=== PATIENT | female | born 1955 | race Caucasian/White ===

== ENCOUNTER → 2016-09-14 | Outpatient (CLI) | payer OTHER | END | disposition home or self-care (01) | LOC: C.LAB1850 15:17 | PROVIDERS: ATTEND Physician Assistant | DX: R07.89 Other chest pain (principal) ==

== ENCOUNTER 2024-06-14 12:45 | Observation (INO) ==
--- OUTSIDE RECORDS SUMMARY | 2024-06-14 12:58 | External Medical Summary | Summary of Care ---
Author Name Unknown Organization [facility] Address [address] [place] [address] Phone [phone] Care Team Providers Care Physics Technical Officer Name Role Phone Brent Lozano PA-C Primary Care Provide r Reason for Visit * Reason Onset Date Comments Medication Refill 02/04/2024 Encounter Details Date Type Department Care Team (Late st Contact Info) Description 02/04/2024 Refill [facility] [phone] [place] [phone] Brent Lozano PA-C [address] [facility] [place] [phone] Slow transit constipation* Allergies No known active allergiesdocumented as of this encounter (statuses as of 02/05/2024) Medications Medication Sig Dispensed Refills Start Date End Date Status PRESERVISION AREDS PO CAPS Take 1 Capsule by mouth in the morning and 1 Capsule in the evening. Active MEGARED OMEGA-3 KRILL OIL 500 MG CAPS Take 1 Capsule by mouth in the morning. Active polyethylene glycol 3350 (MIRALAX) 255 gram powderIndications: Constipation, unspecified constipation type Take 17 g by mouth as needed for Constipation. Dissolve one heaping tablespoon in 8 ounces of water or juice. 1 Bottle 2 08/20/2019 Active Centrum Silver 50+Women Oral Tablet Take 1 Tab by mouth daily. Active Vitamin D-3 25 MCG (1000 UT) Oral Capsule Take 1 Capsule by mouth in the morning. Active Nystatin 659779 UNIT/GM External Powder (Nystop) Apply topically to affected area 3 times a day . Apply under breasts 60 g 09/13/2021 Active CoQ10 100 MG Oral Capsule Take by mouth. Active Famotidine 20 MG Oral Tablet (Pepcid)Indication s:Slow transit constipation Take 1 Tablet by mouth 2 times a day as needed for Heartburn. 30 Tablet 5 09/11/2022 Active Hydrocortisone Acetate 25 MG Rectal Suppository (Anusol-HC)Indicat ions:Hemorrhoids, external without complications Administer into the rectum 2 times a day in the morning and at bedtime as needed for Hemorrhoids. Up to 2 weeks. 24 Suppository 1 09/11/2022 Active Lisinopril 40 MG Oral Tablet TAKE ONE TABLET BY MOUTH EVERY DAY 90 Tablet 3 11/20/2022 Active hydroCHLOROthiazid e 25 MG Oral Tablet (Hydrodiuril) TAKE ONE TABLET BY MOUTH IN THE MORNING 100 Tablet 3 06/21/2022 Active Omeprazole 20 MG Oral Capsule Delayed Release (PriLOSEC)Indicati ons:Slow transit constipation Take 1 Capsule by mouth daily as needed for Heartburn. 30 Capsule 5 02/05/2024 Active Omeprazole 20 MG Oral Capsule Delayed Release (PriLOSEC)Indicati ons:Slow transit constipation Take 1 Capsule by mouth daily as needed for Heartburn. 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 r degeneration, right eye, with inactive scar 08/15/2018 Mixed hyperlipidemia 08/15/2018 AMD (age related macular degeneration) 8 HTN, goal below 140/90 10/04/2016 documented as of this encounter (statuses as of 02/05/2024) Resolved Problems Problem Noted Date Diagnosed Date Resolved Date Chest pain 03/18/2019 01/12/2020 Palpitations 02/07/2018 02/17/2019 Hyperlipidemia 10/04/2016 10/04/2016 Dyslipidemia 09/25/2011 08/15/2018 documented as of this encounter (statuses as of 02/05/2024) Immunizations Name Administration Dates Next Due TDAP (age 10 and older)(Boostrix) 03/27/2015,06/2014 Zoster Vaccine Recombinant (Shingrix) 08/15/2018 ,02/07/2018 documented as of this encounter Social History Tobacco Use Types Packs/Day Years Used Date Smoking Tobacco: Never Smokeless Tobacco: Never Alcohol Use Standard Drinks/Week Comments No 0 (1 standard drink = 0.6 oz pur e alcohol) PHQ-2 Answer Date Recorded PHQ Adult Total Score 0 09/11/2022 Hunger Vital Sign Answer Date Recorded Within the past 12 months, y ou worried that your food would run out before you got the money to buy more. Never true 09/12/19 23 Within the past 12 months, t he food you bought just didn't last and you didn't have money to get more. Never true 09/11/2022 Utilities Answer Date Recorded Do you have trouble paying y our heating, water, or electric bill? (Adult - for ages 18 years and over) Not on file 11/27/2023 Is your family able to pay t he heat, water, or electric bill? (Household - for ages 0-17 years) Not on file 11/27/2023 Does your family have access to good internet? (Household - for ages 0-17 years) Not on file 11/27/2023 Social Connections Answer Date Recorded How often do you feel lonely or isolated from those around you? (Adult - for ages 18 years and over) Not on file 11/27/2023 Sex and Gender Information Value Date Recorded Sex Assigned at Female 09/11/2022 8:02 AM EDT Gender Identity Female 09/11/2022 8:02 AM EDT Sexual Orientation Straight 09/11/2022 8: 02 AM EDT Job Start Date Occupation Industry Not on file Not on file Not on file documented as of this encounter Miscellaneous Notes * Telephone Encounter - Brent Lozano PA-C - 02/05/2024 2:36 PM EDT Signed Prescriptions: Disp Refills Omeprazole 20 MG Oral Capsule Delayed Rele*30 Cap*5 Sig: Take 1 Capsule by mouth daily as needed for Heartburn. Authorizing Provider: BRENT LOZANO * Telephone Encounter - Ilana Gamble LPN - 02/04/2024 1:47 PM EDT No prescriptions requested or ordered in this encounter Last Visit: 05/07/2023 (in office), Visit date not found (telemedicine) Next Visit: Visit date not found Last date the medication was ordered: 09/11/22 Patient Active Problem List Diagnosis HTN, goal below 140/90 AMD (age related macular degeneration) Exudative age-related macular degeneration, right eye, with inactive scar (HCC) Mixed hyperlipidemia Moderate episode of recurrent major depressive disorder (HCC) SVT (supraventricular tachycardia) (HCC) Slow transit constipation Labs: Lab Results Component Value Date/Time CREATININE - [facility] 0.8 09/13/2022 07:51 AM CREATININE - [facility] 0.8 08/20/2019 09:25 AM CREATININE-[facility] 0.73 03/04/2018 12:00 AM Lab Results Component Value Date/Time POTASSIUM - [facility] 4.3 09/13/2022 07:51 AM POTASSIUM - [facility] 4.8 08/20/2019 09:25 AM POTASSIUM-[facility] LAB 3.6 03/04/2018 12:00 AM Lab Results Component Value Date/Time TSH - [facility] 1.49 09/13/2022 07:51 AM TSH - [facility] 1.53 08/20/2019 09:25 AM Lab Results Component Value Date/Time LDL CHOLESTEROL (CALCULATED) - [facility] 198 (H) 09/13/2022 07:51 AM LDL CHOLESTEROL (CALCULATED) - [facility] 108 12/22/2021 07:57 AM LDL CHOLESTEROL (CALCULATED) - [facility] 98 08/20/2019 09:25 AM LDL CHOLESTEROL (CALCULATED) - [facility] 102 02/07/2018 08:13 AM LDL CHOLESTEROL (DIRECT MEASURE) - [facility] NOT APPLICABLE 08/20/2019 09:25 AM LDL CHOLESTEROL (DIRECT MEASURE) - [facility] 98 08/29/2018 07:59 AM LDL CHOLESTEROL (DIRECT MEASURE) - [facility] 114 02/07/2018 08:13 AM LDL CHOLESTEROL (DIRECT MEASURE) - [facility] NOT APPLICABLE 02/07/2018 08:13 AM Lab Results Component Value Date/Time ALT - [facility] 12 09/13/2022 07:51 AM ALT - [facility] 17 08/20/2019 09:25 AM Hemoglobin AIC Results: No results found for: "HEMOGLOBIN A1C" documented in this encounter Plan of Treatment Health Maintenance Due Date Last Done Comments Albumin/Creatinine Ratio 1972 Cologuard 08/15/1999 Sigmoidoscopy 08/15/1999 Fecal Occult Blood Test 10/08/2013 10/08/2012, 09/24 Pneumococcal Vaccine: 65+ Years (1 of 1 - PCV) 08/15/2019 Adult Wellness Visit 2020 COVID-19 Vaccine (1 - 2022-24 season) 2023 Depression Monitoring 09/12/2023 09/11/2022 GFR 09/14/2023 09/13/2022, 12/09, 05/12/2021, Additional history exists Mammogram 09/19/2023 09/18/2022, 09/09, 04/28/2021, Additional history exists Influenza Vaccine (FLU shot) (#1) 2024 DTap/Tdap Vaccines (3 - Td or Tdap) 03/27/2025 03/27/2015, 06/11/2014 DXA Scan 04/29/2025 04/29/2020 Diabetes Screening 09/13/2025 09/13/2022, 0 12/22/2021, 05/12/2021, Additional history exists Colonoscopy 03/27/2027 03/27/2017, 03/27/2017 Colorectal Cancer Screening 03/27/2027 Lipid Panel 09/14/2027 09/13/2022, 12/09, 09/30/2020, Additional history exists Zoster Vaccines Completed 08/15/2018, 02/07/2018 HPV (Gardasil) Vaccine Aged Out No lo nger eligible based on patient's age to complete this topic Hepatitis B Vaccine Aged Out No longe r eligible based on patient's age to complete this topic MENINGOCOCCAL (MENACTRA/MENVEO) Aged Out No longer eligible based on patient's age to complete this topic documented as of this encounter Medical Devices Not on filedocumented as of this encounter Visit Diagnoses Diagnosis Slow transit constipation- Primary documented in this encounter Care Teams Physics Technical Officer Relationship Specialty Start Date End Date Brent Lozano PA-C [address] [facility] [place] [phone] PCP - General Physician Yoke Setter 05/04/23 documented as of this encounter
[2024-06-14 13:08] LABS: Basophils # (auto) 0.05 K/uL (0.00-0.20); Basophils % (auto) 0.7 %; Eosinophils # (auto) 0.08 K/uL (0.00-0.50); Eosinophils % (auto) 1.2 %; Hematocrit (blood only) 40.2 % (37.0-47.0); Hemoglobin 13.3 g/dl (12.0-16.0); Immature Granulocytes # (auto) 0.01 K/uL (0.01-0.20); Immature Granulocytes % (auto) 0.1 %; Lymphocytes # (auto) 1.87 K/uL (1.20-3.40); Lymphocytes % (auto) 27.2 %; Mean Corpuscular Hemoglobin 30.8 pg (25.0-34.0); Mean Corpuscular Hgb Conc 33.1 g/dL (32.0-36.0); Mean Corpuscular Volume 93.1 fL (80.0-100.0); Mean Platelet Volume 9.2 fL (9.4-12.4); Monocytes # (auto) 0.64 K/uL (0.11-0.59); Monocytes % (auto) 9.3 %; Neutrophils # (auto) 4.23 K/uL (1.40-6.50); Neutrophils % (auto) 61.5 %; Platelet Count 273 K/uL (130-400); RDW Coefficient of Variation 13.1 % (11.5-14.5); RDW Standard Deviation 45.5 fL (36.4-46.3); Red Blood Count 4.32 M/uL (4.20-5.40); White Blood Count 6.88 K/ul (4.8-10.8)
--- NOTE | 2024-06-14 13:08 | Emergency Department Note ---
Impression & Plan Hypertensive urgency ADMIT ED Provider Note HPI: History obtained from Patient. The patient is a 68-year-old female with history of hypertension, presents emergency department with a chief complaint of intermittent chest pressure and dizziness for the past 2 days. Patient states she has had more of a constant sensation of dizziness/lightheadedness with intermittent chest pressure. Patient states that the chest discomfort/pressure does not seem to change much with exertion and the discomfort seems to come and go at random times. On arrival here to the ED the patient was noted to be hypertensive at 196/133, she is otherwise hemodynamically stable and saturating well on room air on my initial assessment. Patient was initially seen in the critical pathways waiting room secondary to lack of bed availability in the ER. ROS: - Per HPI Differential Diagnosis: Acute coronary syndrome, pulmonary embolism, aortic dissection, viral upper respiratory infection, hypertensive urgency, hypertensive emergency, intracranial hemorrhage, amongst other potential pathologies. *Outpatient medications and allergy history reviewed. PE: General: Alert HEENT: Normocephalic, trachea midline Eyes: Extraocular eye movement is intact, no scleral erythema Pulmonary: Clear to auscultation bilaterally, no wheezing Cardio: Regular rate and rhythm GI: Abdomen is soft to palpation : No suprapubic tenderness MSK: No evidence of trauma or malformation of the extremities, no edema Skin: No evidence of rash Neuro: Alert, no focal deficits Psychiatric: Cooperative INDEPENDENT INTERPRETATIONS: air sampling and monitoring: (As interpreted by myself): - An order was placed for continuous cardiac monitoring - Patient was noted to be in Sinus rhythm with a rate of 58 EKG: (As interpreted by myself): Rate: 52 Rhythm: Sinus bradycardia Intervals: Within normal limits ST changes: No ST elevation Time: 1253 Chest x-ray: (As interpreted by myself): No acute disease Interventions provided in ED: -IV labetalol, IV morphine, IV Zofran, IV hydralazine Medical Decision Making: IV was established and lab work obtained, patient was placed on gambling monitor when placed in ED room.Lab work shows no leukocytosis, hemoglobin is normal, platelet count is normal, D-dimer was obtained that is elevated at 660, CMP does not show any evidence of any critical findings. Initial high-sensitivity troponin level is negative. EKG per my interpretation shows sinus bradycardia without any acute ischemic changes. Given elevation in D-dimer, CT angiography of the chest was obtained that does not show any evidence of pulmonary embolism, here is no mention of aortic pathology per radiology. CT imaging of the head was also obtained as the patient later complained of a headache, this did not show any evidence of any acute intracranial process. On my reassessment, patient states she feels "weak" but she denies any focal complaint of pain. She was given IV morphine and IV Zofran when she complained of headache here in the ED and this did resolve her pain. CT imaging does not show any evidence of any acute intracranial hemorrhage. Blood pressure did downtrend with IV labetalol and IV hydralazine. Delta troponin was obtained given the patient's complaint of intermittent chest pressure, this was also negative. On my reevaluation the patient is with her family member at the bedside. Patient tells me she continues to feel unwell but has some difficulty describing what she is currently feeling. She states she does have some nausea and just generally feels very "weak". During our conversation the patient had an episode of emesis. She states that she does not feel well for discharge at this time. Given his, I did discuss the patient's presentation with the [facility] hospitalist service, Dr. Vang, and the patient was placed for admission in stable condition. Consultants/Discussions held with other healthcare providers: -Hospitalist, Dr. Vang Disposition discussion held by myself with: -Patient and patient's family member at the bedside Diagnosis: 1. Hypertensive urgency, acute 2. Vomiting, acute 3. Chest pain, acute, nonspecific 4. Headache, acute, non-intractable Disposition: ADMIT Phil Hawkins DO Emergency Medicine Past Med/Surg History Problem List (Updated 06/14/24 @ 16:42 by Phil Hawkins DO) Hypertensive urgency (Acute) GERD (gastroesophageal reflux disease) Hypertension Chest pain Medical History (Updated 06/14/24 @ 16:42 by Phil Hawkins DO) No cardiac disease Family History Other No pertinent family history in first degree relatives Social History Smoking Status: Never smoker Preferred Language: Bengali Feels Safe at Home: Yes Allergies Allergies Allergy/AdvReac Type Severity Reaction Status Date / Time No Known Allergies Allergy Unverified 06/14/24 15:41 Home Meds Home Medications Medication Instructions Recorded Confirmed cholecalciferol (vitamin D3) 125 See Rx Instructions .Route .COMPLEX 06/14/24 06/14/24 mcg (5,000 unit) tablet (Vitamin D3) lisinopril 10 mg tablet 10 mg PO DAILY 06/14/24 06/14/24 omega-3 fatty acids 500 mg PO BID 06/14/24 06/14/24 omeprazole 20 mg capsule,delayed See Rx Instructions .Route 06/14/24 06/14/24 release .COMPLEX PRN Heartburn [id number] 1 tab PO DAILY 06/14/24 06/14/24 18 mg-10 mg-45 mg-5 mg-250 mg tablet (B Complex w-Vit C) vitamins A,C,N-qgje-ifyqmg 2,148 2 tab PO BID 06/14/24 06/14/24 mcg-113 mg-45 mg-17.4 mg tablet (PreserVision AREDS) Results & Data (ED) Vital Signs Vital Signs - 24 hr 06/14/24 12:47 06/14/24 13:31 06/14/24 13:32 Temperature 36.5 C Temperature Source Temporal Artery Scan Pulse Rate 55 L 54 L 58 L Pulse Rate [Apical] Pulse Rate from SpO2 Sensor Respiratory Rate 18 Respiratory Effort / Characteristics Non-Labored Spontaneous Respiratory Depth Normal Blood Pressure 196/133 H 185/105 H Blood Pressure [Left Arm] Blood Pressure Mean 154 Blood Pressure Mean [Left Arm] Blood Pressure Position Sitting Pulse Oximetry 96 Oxygen Delivery Method Room Air Sepsis Recent Fever Within 48 Hours No Sepsis New/Unexplained Change in Mental Status No Sepsis Action Taken by Nursing No Action Required 06/14/24 13:33 06/14/24 13:33 06/14/24 13:33 Temperature Temperature Source Pulse Rate 53 L Pulse Rate [Apical] 57 L Pulse Rate from SpO2 Sensor Respiratory Rate 18 18 Respiratory Effort / Characteristics Respiratory Depth Blood Pressure Blood Pressure [Left Arm] 154/100 H Blood Pressure Mean Blood Pressure Mean [Left Arm] 118 Blood Pressure Position Pulse Oximetry 96 96 96 Oxygen Delivery Method Room Air Room Air Sepsis Recent Fever Within 48 Hours Sepsis New/Unexplained Change in Mental Status Sepsis Action Taken by Nursing 06/14/24 13:34 06/14/24 13:34 06/14/24 13:34 Temperature Temperature Source Pulse Rate Pulse Rate [Apical] Pulse Rate from SpO2 Sensor Respiratory Rate Respiratory Effort / Characteristics Respiratory Depth Blood Pressure 154/100 H 154/100 H 154/100 H Blood Pressure [Left Arm] Blood Pressure Mean 125 125 125 Blood Pressure Mean [Left Arm] Blood Pressure Position Pulse Oximetry Oxygen Delivery Method Sepsis Recent Fever Within 48 Hours Sepsis New/Unexplained Change in Mental Status Sepsis Action Taken by Nursing 06/14/24 13:54 06/14/24 14:00 06/14/24 14:00 Temperature Temperature Source Pulse Rate 53 L 53 L Pulse Rate [Apical] Pulse Rate from SpO2 Sensor 53 L Respiratory Rate 19 Respiratory Effort / Characteristics Respiratory Depth Blood Pressure 187/93 H 159/94 H Blood Pressure [Left Arm] Blood Pressure Mean 123 Blood Pressure Mean [Left Arm] Blood Pressure Position Pulse Oximetry 96 Oxygen Delivery Method Sepsis Recent Fever Within 48 Hours Sepsis New/Unexplained Change in Mental Status Sepsis Action Taken by Nursing 06/14/24 14:00 06/14/24 14:15 06/14/24 14:16 Temperature Temperature Source Pulse Rate 57 L Pulse Rate [Apical] Pulse Rate from SpO2 Sensor 55 L Respiratory Rate 25 H Respiratory Effort / Characteristics Respiratory Depth Blood Pressure 159/94 H 190/101 H Blood Pressure [Left Arm] Blood Pressure Mean 123 135 Blood Pressure Mean [Left Arm] Blood Pressure Position Pulse Oximetry 91 Oxygen Delivery Method Sepsis Recent Fever Within 48 Hours Sepsis New/Unexplained Change in Mental Status Sepsis Action Taken by Nursing 06/14/24 14:16 06/14/24 14:16 06/14/24 14:24 Temperature Temperature Source Pulse Rate 52 L Pulse Rate [Apical] Pulse Rate from SpO2 Sensor 54 L Respiratory Rate 24 Respiratory Effort / Characteristics Respiratory Depth Blood Pressure 190/101 H 190/101 H Blood Pressure [Left Arm] Blood Pressure Mean 135 135 Blood Pressure Mean [Left Arm] Blood Pressure Position Pulse Oximetry 93 Oxygen Delivery Method Sepsis Recent Fever Within 48 Hours Sepsis New/Unexplained Change in Mental Status Sepsis Action Taken by Nursing 06/14/24 14:27 06/14/24 14:30 06/14/24 14:32 Temperature Temperature Source Pulse Rate 60 Pulse Rate [Apical] Pulse Rate from SpO2 Sensor 54 L Respiratory Rate 21 Respiratory Effort / Characteristics Respiratory Depth Blood Pressure 202/115 H Blood Pressure [Left Arm] 202/115 H Blood Pressure Mean 140 Blood Pressure Mean [Left Arm] 144 Blood Pressure Position Pulse Oximetry 92 Oxygen Delivery Method Sepsis Recent Fever Within 48 Hours Sepsis New/Unexplained Change in Mental Status Sepsis Action Taken by Nursing 06/14/24 14:33 06/14/24 14:54 06/14/24 15:01 Temperature Temperature Source Pulse Rate 63 62 Pulse Rate [Apical] Pulse Rate from SpO2 Sensor 57 L 57 L Respiratory Rate 25 H 18 Respiratory Effort / Characteristics Respiratory Depth Blood Pressure 193/104 H Blood Pressure [Left Arm] Blood Pressure Mean 125 Blood Pressure Mean [Left Arm] Blood Pressure Position Pulse Oximetry 93 95 Oxygen Delivery Method Sepsis Recent Fever Within 48 Hours Sepsis New/Unexplained Change in Mental Status Sepsis Action Taken by Nursing 06/14/24 15:27 06/14/24 15:30 06/14/24 15:30 Temperature Temperature Source Pulse Rate 56 L Pulse Rate [Apical] Pulse Rate from SpO2 Sensor 55 L Respiratory Rate 13 Respiratory Effort / Characteristics Respiratory Depth Blood Pressure 147/87 H 147/87 H Blood Pressure [Left Arm] Blood Pressure Mean 99 99 Blood Pressure Mean [Left Arm] Blood Pressure Position Pulse Oximetry 97 Oxygen Delivery Method Sepsis Recent Fever Within 48 Hours Sepsis New/Unexplained Change in Mental Status Sepsis Action Taken by Nursing 06/14/24 15:30 06/14/24 15:30 06/14/24 15:42 Temperature Temperature Source Pulse Rate 61 60 Pulse Rate [Apical] Pulse Rate from SpO2 Sensor 61 60 Respiratory Rate 15 18 Respiratory Effort / Characteristics Respiratory Depth Blood Pressure 147/87 H Blood Pressure [Left Arm] Blood Pressure Mean 99 Blood Pressure Mean [Left Arm] Blood Pressure Position Pulse Oximetry 95 97 Oxygen Delivery Method Sepsis Recent Fever Within 48 Hours Sepsis New/Unexplained Change in Mental Status Sepsis Action Taken by Nursing 06/14/24 15:45 06/14/24 15:46 06/14/24 15:51 Temperature Temperature Source Pulse Rate 59 L 60 Pulse Rate [Apical] Pulse Rate from SpO2 Sensor 59 L 60 Respiratory Rate 13 19 Respiratory Effort / Characteristics Respiratory Depth Blood Pressure 193/109 H Blood Pressure [Left Arm] Blood Pressure Mean 139 Blood Pressure Mean [Left Arm] Blood Pressure Position Pulse Oximetry 98 96 Oxygen Delivery Method Sepsis Recent Fever Within 48 Hours Sepsis New/Unexplained Change in Mental Status Sepsis Action Taken by Nursing 06/14/24 15:58 Temperature Temperature Source Pulse Rate Pulse Rate [Apical] Pulse Rate from SpO2 Sensor Respiratory Rate Respiratory Effort / Characteristics Respiratory Depth Blood Pressure Blood Pressure [Left Arm] 156/92 H Blood Pressure Mean Blood Pressure Mean [Left Arm] 113 Blood Pressure Position Pulse Oximetry Oxygen Delivery Method Sepsis Recent Fever Within 48 Hours Sepsis New/Unexplained Change in Mental Status Sepsis Action Taken by Nursing Laboratory Data 06/14/24 12:55 06/14/24 12:55 Lab Results 06/14/24 06/14/24 06/14/24 Range/Units 12:55 12:55 15:26 WBC 6.88 (4.8-10.8) K/ul RBC 4.32 (4.20-5.40) M/uL Hgb 13.3 (12.0-16.0) g/dl Hct 40.2 (37.0-47.0) % MCV 93.1 (80.0-100.0) fL MCH 30.8 (25.0-34.0) pg MCHC 33.1 (32.0-36.0) g/dL RDW Std Deviation 45.5 (36.4-46.3) fL RDW Coeff of [place] 13.1 (11.5-14.5) % Plt Count 273 (130-400) K/uL MPV 9.2 L (9.4-12.4) fL Immature Gran % (Auto) 0.1 % Neut % (Auto) 61.5 % Lymph % (Auto) 27.2 % [place] % (Auto) 9.3 % Eos % (Auto) 1.2 % Baso % (Auto) 0.7 % Neut # (Auto) 4.23 (1.40-6.50) K/uL Lymph # (Auto) 1.87 (1.20-3.40) K/uL [place] # (Auto) 0.64 H (0.11-0.59) K/uL Eos # (Auto) 0.08 (0.00-0.50) K/uL Baso # (Auto) 0.05 (0.00-0.20) K/uL Immature Gran # (Auto) 0.01 (0.01-0.20) K/uL PT 10.3 (9.0-12.0) Seconds INR 0.9 (0.9-1.1) APTT 29 (21-31) Seconds PTT Ratio 1.1 D-Dimer 660 H* Cancelled (0-500) ug/L FEU Sodium 137 (136-145) mmol/L Potassium 3.9 (3.5-5.1) mmol/L Chloride 102 (98-107) mmol/L Carbon Dioxide 30 (21-32) mmol/L Anion Gap 5 (3-11) BUN 16 (6-23) mg/dl Creatinine 0.89 (0.6-1.2) mg/dl Est Cr Clr Drug Dosing 57.4 ml/min eGFR 70.14 BUN/Creatinine Ratio 18.0 (10-20) Glucose 101 H (70-99(Fasting)) mg/dl Calcium 9.4 (8.6-10.3) mg/dl Total Bilirubin 0.6 (0.2-1.0) mg/dl AST 23 (13-39) U/L ALT 18 (7-52) U/L Alkaline Phosphatase 65 (34-104) U/L Troponin I High Sens 4.6 4.7 (0-14) pg/ml Total Protein 7.4 (6.0-8.3) gm/dl Albumin 4.3 (3.4-5.0) gm/dl Globulin 3.1 (2.5-4.0) gm/dl Albumin/Globulin Ratio 1.4 (0.9-2) Administered Medications Discontinued Medications Hydralazine HCl (Hydralazine Hcl 20 Mg/Ml Vial) 10 mg IV NOW STA Stop: 06/14/24 15:03 Last Admin: 06/14/24 15:44 Dose: 10 mg Documented By: LESLI Ioversol (Optiray 320 125ml) 120 ml IV ONCE ONE Stop: 06/14/24 14:42 Last Admin: 06/14/24 14:42 Dose: 120 ml Documented By: DAYA Labetalol HCl (Labetalol Hcl Iv 5 Mg/Ml 20ml) 10 mg IV NOW STA Stop: 06/14/24 13:07 Last Admin: 06/14/24 13:31 Dose: 10 mg Documented By: LESLI Morphine Sulfate (Morphine Sulfate 4 Mg/Ml 1 Ml Carp\\Vial) 4 mg IV NOW STA Stop: 06/14/24 13:56 Last Admin: 06/14/24 14:02 Dose: 4 mg Documented By: LESLI Ondansetron HCl (Ondansetron Inj 2 Mg/Ml 2 Ml Vial) 4 mg IV NOW STA Stop: 06/14/24 13:56 Last Admin: 06/14/24 14:02 Dose: 4 mg Documented By: LESLI Ondansetron HCl (Ondansetron Inj 2 Mg/Ml 2 Ml Vial) 4 mg IV NOW STA Stop: 06/14/24 15:34 Last Admin: 06/14/24 15:44 Dose: 4 mg Documented By: LESLI Imaging Data Radiologist's Impression: Chest X-Ray 06/14/24 12:51 EXAM: Portable AP chest radiograph TECHNIQUE: AP portable radiograph of the chest was obtained. INDICATION: Shortness of breath Comparison: Chest radiograph March 04, 2018 FINDINGS: LINES and TUBES: None CARDIOVASCULAR: Cardiac silhouette is mildly enlarged in size. LUNGS/PLEURA: No focal consolidation identified. Mild peribronchial cuffing. Lungs are hyperinflated. No significant pleural fluid. No discernible pneumothorax. OSSEOUS/OTHER: No displaced acute osseous process identified. IMPRESSION: Mild cardiac enlargement. Mild peribronchial cuffing that may be seen with bronchiolitis. No focal consolidation detected. Electronically signed by Dylan Gayle 06-14-2024 2:17 PM Chest CTA 06/14/24 14:13 CT pulmonary angiogram with IV contrast History: Chest pain COMPARISON: None TECHNIQUE: CT angiography of the chest was performed without IV contrast followed by IV contrast, including 3D post processing CTA image reconstruction. Dose reduction techniques were achieved by using automatic exposure control and/or adjustment of mA and/or kV according to patient size and/or use of iterative reconstruction technique. FINDINGS: Diagnostic quality: Adequate There is no evidence for pulmonary embolism. The heart is not enlarged. There is no pericardial effusion. There are no abnormally enlarged hilar or mediastinal lymph nodes. The central tracheobronchial tree is clear. The lungs are clear. There is no pleural effusion. Limited visualized upper abdomen. No destructive osseous changes are seen. IMPRESSION: No evidence for pulmonary embolism. Electronically signed by Adams Wooten 06-14-2024 2:[address] 06/14/24 14:13 CT head without contrast History: Headache Comparison: None Technique: Using multidetector thin collimation helical acquisition technique, axial, coronal and sagittal CT images from the skull base to the vertex were obtained without intravenous contrast. Dose reduction techniques were achieved by using automatic exposure control and/or adjustment of mA and/or kV according to patient size and/or use of iterative reconstruction technique. Findings: No intracranial hemorrhage, mass-effect, or midline shift. The ventricles are proportionate to the cerebral sulci. The parra to white matter differentiation of the cerebral hemispheres is preserved. The basal cisterns are patent. The visualized paranasal sinuses are clear. Mastoid air cells are clear. Impression: No acute intracranial pathology. Electronically signed by Adams Wooten 06-14-2024 2:58 PM Discharge Plan Visit Data Chief Complaint: Cardiac Assessment Stated Complaint: CHEST/BREAST PAIN, DIZZY, CHEST TIGHTNESS ED Provider: Phil Hawkins Discharge Problem: Hypertensive urgency Forms Stand Alone Forms: [facility] Prescriptions Prescriptions: No Action lisinopril 10 mg Tablet 10 mg PO DAILY omeprazole 20 mg capsule,delayed release(DR/EC) See Rx Instructions .ROUTE .COMPLEX PRN (Reason: Heartburn) Rx Instructions: 20 mg orally as needed [place] 3 Fish Oil Capsule 500 mg PO BID Rx Instructions: OTC cholecalciferol (vitamin D3) [Vitamin D3] 125 mcg (5,000 unit) Tablet See Rx Instructions .ROUTE .COMPLEX Rx Instructions: OTC TABLET PT DOES NOT REMEMBER DOSE BUT SHE TAKES IT QD PreserVision AREDS 2,148 mcg-113 mg-45 mg-17.4mg Tablet 2 tab PO BID Rx Instructions: administer with AM and PM meals OTC B Complex w-Vit C [id number] mg Tablet 1 tab PO DAILY Rx Instructions: OTC Referrals Referrals: Brenna George, DO [Outside Practitioners] -
[2024-06-14 13:26] LABS: Albumin Globulin Ratio 1.4 (0.9-2); Albumin Level 4.3 gm/dl (3.4-5.0); Bilirubin,Total 0.6 mg/dl (0.2-1.0); Calcium 9.4 mg/dl (8.6-10.3); Creatinine Clr Calc Pharmacy 57.4 ml/min; Globulin 3.1 gm/dl (2.5-4.0); Potassium 3.9 mmol/L (3.5-5.1); Total Protein 7.4 gm/dl (6.0-8.3)
[2024-06-14 13:31] LABS: Troponin I High Sensitivity 4.6 pg/ml (0-14)
[2024-06-14] MEDS: LABETALOL HCL IV 5 MG/ML 20ML IV STA (13:31)
[2024-06-14 13:37] LABS: INR 0.9 (0.9-1.1); Partial Thromboplastin Ratio 1.1; Partial Thromboplastin Time 29 Seconds (21-31); Prothrombin Time 10.3 Seconds (9.0-12.0)
[2024-06-14 13:58] LABS: D Dimer 660 ug/L FEU (0-500)
[2024-06-14] MEDS: ONDANSETRON INJ 2 MG/ML 2 ML VIAL IV STA ×3 (14:02→17:34)
[2024-06-14] MEDS: MoRPHine SULFATE 4 MG/ML 1 ML CARP\\VIAL IV STA (14:02)
--- NOTE | 2024-06-14 14:17 | XRay Report ---
EXAM: Portable AP chest radiograph TECHNIQUE: AP portable radiograph of the chest was obtained. INDICATION: Shortness of breath Comparison: Chest radiograph March 04, 2018 FINDINGS: LINES and TUBES: None CARDIOVASCULAR: Cardiac silhouette is mildly enlarged in size. LUNGS/PLEURA: No focal consolidation identified. Mild peribronchial cuffing. Lungs are hyperinflated. No significant pleural fluid. No discernible pneumothorax. OSSEOUS/OTHER: No displaced acute osseous process identified. IMPRESSION: Mild cardiac enlargement. Mild peribronchial cuffing that may be seen with bronchiolitis. No focal consolidation detected. Electronically signed by Dylan Gayle 06-14-2024 2:17 PM
[2024-06-14] MEDS: OPTIRAY 320 125ml IV ONE (14:42)
--- NOTE | 2024-06-14 14:59 | CT Scan Report ---
CT head without contrast History: Headache Comparison: None Technique: Using multidetector thin collimation helical acquisition technique, axial, coronal and sagittal CT images from the skull base to the vertex were obtained without intravenous contrast. Dose reduction techniques were achieved by using automatic exposure control and/or adjustment of mA and/or kV according to patient size and/or use of iterative reconstruction technique. Findings: No intracranial hemorrhage, mass-effect, or midline shift. The ventricles are proportionate to the cerebral sulci. The parra to white matter differentiation of the cerebral hemispheres is preserved. The basal cisterns are patent. The visualized paranasal sinuses are clear. Mastoid air cells are clear. Impression: No acute intracranial pathology. Electronically signed by Adams Wooten 06-14-2024 2:58 PM
--- NOTE | 2024-06-14 15:00 | CT Scan Report ---
CT pulmonary angiogram with IV contrast History: Chest pain COMPARISON: None TECHNIQUE: CT angiography of the chest was performed without IV contrast followed by IV contrast, including 3D post processing CTA image reconstruction. Dose reduction techniques were achieved by using automatic exposure control and/or adjustment of mA and/or kV according to patient size and/or use of iterative reconstruction technique. FINDINGS: Diagnostic quality: Adequate There is no evidence for pulmonary embolism. The heart is not enlarged. There is no pericardial effusion. There are no abnormally enlarged hilar or mediastinal lymph nodes. The central tracheobronchial tree is clear. The lungs are clear. There is no pleural effusion. Limited visualized upper abdomen. No destructive osseous changes are seen. IMPRESSION: No evidence for pulmonary embolism. Electronically signed by Adams Wooten 06-14-2024 2:59 PM
[2024-06-14] MEDS: hydrALAZINE HCL 20 MG/ML VIAL IV STA (15:44)
--- NOTE | 2024-06-14 16:39 | History & Physical Report ---
Date of Service June 14, 2024 Assessment & Plan (1) Chest pain: Plan: Jo Ann is a 68-year-old female with PMH of GERD and HTN. Patient presented on 06/14 for intermittent left-sided chest pain, lightheadedness, and fatigue x 2 days. Troponin WNL x 2 on arrival EKG okay Elevated D-dimer at 660 Chest CTA revealed no evidence of pulmonary embolism Echocardiogram ordered, pending Suspect patient's high blood pressure in the ED is likely contributing to lightheadedness and intermittent chest pain Continuous telemetry monitoring (2) Hypertension: Plan: Hypertension up to 202/105 in the ED Labetalol + hydralazine IV given in the ED Labetalol 5 mg IV on-call as needed for SBP >180 or DBP >110 Continue to monitor Continue lisinopril (3) Lightheadedness: Plan: Orthostatic vitals ordered, pending BioFire ordered, pending Fall precautions (4) Vomiting: Plan: Vomiting x 2 in the ED, suspected secondary to morphine Would defer further morphine Famotidine 20 mg IV x 1 Clear liquid diet for now IV antiemetics as needed (5) GERD (gastroesophageal reflux disease): Plan: Continue PPI Plan Disposition: Obs - Admit to MedSurg telemetry Full code Clear liquid diet for now will vomiting VTE PPx: SCDs History of Present Illness Chief Complaint: Cardiac assessment Primary Care Provider: BONIFACIO Tijerina Jo Ann is a 68-year-old female with PMH of GERD and HTN. She presented on 06/14 for intermittent chest pain, lightheadedness, and fatigue x 2 days. The pain is located under her left breast. No radiation to the back, shoulder, or jaw. She does have some soreness in her left shoulder, but believes it was due to housework yesterday (she was scrubbing and cleaning). She reports that the intermittent chest pain is unpredictable, and can happen both with exertion and at rest. She characterizes it as a sharp, stabbing pain just under her left breast. No prior history of GI issues or peptic ulcers. It is not worse with eating. She reports that she is chest pain-free at time of admission; 0/10 at present. When the sharp pain comes on, she rates it as 5/10. It occurs twice daily and last for seconds at a time. Her main concern is generalized weakness and lightheadedness. She denies episodes of syncope. She reports she has been eating and drinking okay. Patient reports good compliance with taking her medicine at home; she took her lisinopril last night. No sick contacts. She did have 1 episode of vomiting in the emergency department, but believes this may have been secondary to morphine administration. No prior history of MIs or strokes. 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 She does have a family history of cardiac issues. She denies smoking, tobacco use, recent alcohol use. Patient is hypertensive at 156/92 at time admission; vitals otherwise stable. ED course: Labetalol 10 mg IV Morphine sulfate 4 mg IV Zofran 4 mg IV x 2 Hydralazine 10 mg IV ROS: Patient endorses chest pain, lightheadedness, off balance / staggering at times, fatigue, and N/V x 1 in the ED. Patient denies fever, chills, night-sweats, dizziness, syncope, SOB at rest or [place], cough, abdominal pain, diarrhea, melena, burning with urination, blood in the urination/stool, or numbness/tingling in the arms or legs. Allergies Allergy/AdvReac Type Severity Reaction Status Date / Time No Known Allergies Allergy Unverified 06/14/24 15:41 Home Medications Medication Instructions Recorded Confirmed Type cholecalciferol (vitamin D3) 125 See Rx Instructions .Route .COMPLEX 06/14/24 06/14/24 History mcg (5,000 unit) tablet (Vitamin D3) lisinopril 10 mg tablet 10 mg PO DAILY 06/14/24 06/14/24 History omega-3 fatty acids 500 mg PO BID 06/14/24 06/14/24 History omeprazole 20 mg capsule,delayed See Rx Instructions .Route 06/14/24 06/14/24 History release .COMPLEX PRN Heartburn [id number]-L-OI 1 tab PO DAILY 06/14/24 06/14/24 History 18 mg-10 mg-45 mg-5 mg-250 mg tablet (B Complex w-Vit C) vitamins A,C,D-bwzn-jucrbx 2,148 2 tab PO BID 06/14/24 06/14/24 History mcg-113 mg-45 mg-17.4 mg tablet (PreserVision AREDS) Past Med/Surg History Problem List (Updated 06/14/24 @ 17:15 by Jose Dickey PA-C) Vomiting Lightheadedness Hypertensive urgency (Acute) GERD (gastroesophageal reflux disease) Hypertension Chest pain Medical History (Updated 06/14/24 @ 17:15 by Jose Dickey PA-C) No cardiac disease Family History Other No pertinent family history in first degree relatives Social History Smoking Status: Never smoker Preferred Language: Bulgarian Feels Safe at Home: Yes Review of Systems Review of Systems: See HPI above Physical Exam Physical Exam: General: no acute distress; lethargic; niece at bedside; non-toxic appearing; cooperative; SpO2 96% on RA HEENT: normocephalic, atraumatic; no scleral icterus; PERRLA; vision and hearing intact Neck: supple; no lymphadenopathy; trachea midline Skin: warm, dry without signs of tenting; no cyanosis; no rashes, bruising, lesions, or erythema noted CV: Upper left chest wall is TTP; no rashes or bruising appreciated on the chest wall or left flank; chest wall otherwise NTP; RRR; S1/S2 normal; no murmurs/rubs/gallops; pulses intact and symmetric at radial, DP, and PT Lungs: no acute respiratory distress; symmetrical chest wall expansion; clear breath sounds across all lung damico w/o adventitious sounds; no wheezing ABD: Soft, NTP; BS present; no rebound/guarding; no distention MSK: no tics or fasciculations; no edema noted in the LEs b/l, nonerythematous Neuro: A&Ox3; normal mood and affect; fluent speech; no focal deficits; sensation intact and symmetric in lower extremities bilaterally Results & Data Results & Data Vital Signs (Past 12 Hours) Vital Signs Temp Pulse Pulse Resp BP BP Pulse Ox 06/14/24 15:58 156/92 H 06/14/24 15:51 60 19 96 06/14/24 15:46 193/109 H 06/14/24 15:45 59 L 13 98 06/14/24 15:42 60 18 97 06/14/24 15:30 61 15 95 06/14/24 15:30 147/87 H 06/14/24 15:30 147/87 H 06/14/24 15:30 147/87 H 06/14/24 15:27 56 L 13 97 06/14/24 15:01 193/104 H 06/14/24 14:54 62 18 95 06/14/24 14:33 63 25 H 93 06/14/24 14:32 202/115 H 06/14/24 14:30 202/115 H 06/14/24 14:27 60 21 92 06/14/24 14:24 52 L 24 93 06/14/24 14:16 190/101 H 06/14/24 14:16 190/101 H 06/14/24 14:16 190/101 H 06/14/24 14:15 57 L 25 H 91 06/14/24 14:00 159/94 H 06/14/24 14:00 159/94 H 06/14/24 14:00 53 L 19 96 06/14/24 13:54 53 L 187/93 H 06/14/24 13:34 154/100 H 06/14/24 13:34 154/100 H 06/14/24 13:34 154/100 H 06/14/24 13:33 53 L 18 96 06/14/24 13:33 57 L 18 154/100 H 96 06/14/24 13:33 96 06/14/24 13:32 58 L 06/14/24 13:31 54 L 185/105 H 06/14/24 12:47 36.5 C 55 L 18 196/133 H 96 O2 Del Method 06/14/24 15:58 06/14/24 15:51 06/14/24 15:46 06/14/24 15:45 06/14/24 15:42 06/14/24 15:30 06/14/24 15:30 06/14/24 15:30 06/14/24 15:30 06/14/24 15:27 06/14/24 15:01 06/14/24 14:54 06/14/24 14:33 06/14/24 14:32 06/14/24 14:30 06/14/24 14:27 06/14/24 14:24 06/14/24 14:16 06/14/24 14:16 06/14/24 14:16 06/14/24 14:15 06/14/24 14:00 06/14/24 14:00 06/14/24 14:00 06/14/24 13:54 06/14/24 13:34 06/14/24 13:34 06/14/24 13:34 06/14/24 13:33 06/14/24 13:33 Room Air 06/14/24 13:33 Room Air 06/14/24 13:32 06/14/24 13:31 06/14/24 12:47 Room Air Laboratory Results Abnormal lab results 06/14/24 Range/Units 12:55 MPV 9.2 L (9.4-12.4) fL [place] # (Auto) 0.64 H (0.11-0.59) K/uL D-Dimer 660 H* (0-500) ug/L FEU Glucose 101 H (70-99(Fasting)) mg/dl Diagnostic Findings Chest X-Ray 06/14/24 12:51 EXAM: Portable AP chest radiograph TECHNIQUE: AP portable radiograph of the chest was obtained. INDICATION: Shortness of breath Comparison: Chest radiograph March 04, 2018 FINDINGS: LINES and TUBES: None CARDIOVASCULAR: Cardiac silhouette is mildly enlarged in size. LUNGS/PLEURA: No focal consolidation identified. Mild peribronchial cuffing. Lungs are hyperinflated. No significant pleural fluid. No discernible pneumothorax. OSSEOUS/OTHER: No displaced acute osseous process identified. IMPRESSION: Mild cardiac enlargement. Mild peribronchial cuffing that may be seen with bronchiolitis. No focal consolidation detected. Electronically signed by Dylna Gayle 06-14-2024 2:17 PM Chest CTA 06/14/24 14:13 CT pulmonary angiogram with IV contrast History: Chest pain COMPARISON: None TECHNIQUE: CT angiography of the chest was performed without IV contrast followed by IV contrast, including 3D post processing CTA image reconstruction. Dose reduction techniques were achieved by using automatic exposure control and/or adjustment of mA and/or kV according to patient size and/or use of iterative reconstruction technique. FINDINGS: Diagnostic quality: Adequate There is no evidence for pulmonary embolism. The heart is not enlarged. There is no pericardial effusion. There are no abnormally enlarged hilar or mediastinal lymph nodes. The central tracheobronchial tree is clear. The lungs are clear. There is no pleural effusion. Limited visualized upper abdomen. No destructive osseous changes are seen. IMPRESSION: No evidence for pulmonary embolism. Electronically signed by Adams Wooten 06-14-2024 2:[address] 06/14/24 14:13 CT head without contrast History: Headache Comparison: None Technique: Using multidetector thin collimation helical acquisition technique, axial, coronal and sagittal CT images from the skull base to the vertex were obtained without intravenous contrast. Dose reduction techniques were achieved by using automatic exposure control and/or adjustment of mA and/or kV according to patient size and/or use of iterative reconstruction technique. Findings: No intracranial hemorrhage, mass-effect, or midline shift. The ventricles are proportionate to the cerebral sulci. The parra to white matter differentiation of the cerebral hemispheres is preserved. The basal cisterns are patent. The visualized paranasal sinuses are clear. Mastoid air cells are clear. Impression: No acute intracranial pathology. Electronically signed by Adams Wooten 06-14-2024 2:58 PM ECG Additional Comments: ECG revealed sinus bradycardia at 52 bpm; QTc 420 Code Status & VTE Plan Code Status Full code VTE Prophylaxis Plan VTE Prophylaxis will be ordered: Yes Supervising Physician Co-Signing Physician Notes I have personally seen, evaluated and examined the patient. I have also personally discussed the management of the patient with the resident physician/MCKAY and I agree with the exam findings documented in the history and physical examination and the documented assessment and plan unless otherwise stated below. Brief Exam: In general pleasant 68-year-old female is alert and oriented x 3 at the time my exam. As stated above her chest symptoms are completely resolved. Her last blood pressure in the room was 152/63. She is having multiple episodes of emesis will vomit the bedside. We ordered stat IV Zofran at the bedside the nurse placed that is a verbal order and is administering at the time of this dictation. She has no abdominal pain. Just the nausea and vomiting. The patient states she is compliant with her lisinopril. She states she takes her blood pressure at home approximately once a week and she is normally in the 120s to 140s systolically. She is never been higher than that. Today she took her blood pressure at home twice because she was not feeling good and it was significantly elevated and therefore presented for further evaluation and treatment as discussed above. HEENT: Normocephalic atraumatic. Heart: Regular rate and rhythm I do not appreciate any murmur or ectopy or rub. Lungs: Clear bilaterally. Abdomen: Soft nontender positive bowel sounds. Extremities are intact with no peripheral edema. Neurologically: She is alert and oriented x 3 with no focal deficit. Assessment/plan: As discussed above. Will do some as needed labetalol. I do anticipate may be the patient will require additional antihypertensives orally will see how she does however I do not want to start that now given the drop of systolic blood pressure in the field of greater than 240 now down to 153 I do not want to drop her any quicker than that. Will monitor carefully. We will check an echocardiogram and serial troponins. If she is to remain significantly hypertensive renal artery arthroscopy with restrictive indices should be considered to rule out renal artery stenosis. Please refer to orders for further planning. PG Care Time/CCT Total # of Minutes Spent Total Time Spent with Patient: Total time spent is greater than 50% in coordination of care (as documented) at patient's floor/unit and/or counseling patient: [place] [address] INT INP/OBS CARE 2/55MIN Patient Type New History Comprehensive Exam Comprehensive Medical Decision Making Moderate Complexity Diagnoses Chest pain R07.9 Hypertension I10 Lightheadedness R42 Vomiting R11.10 GERD (gastroesophageal reflux disease) K21.9
[2024-06-14] MEDS: FAMOTIDINE 20MG IV PUSH 20 MG/5 ML SYR IV STA (17:27)
[2024-06-14 17:41] LABS: Adenovirus PCR Not Detected (NotDetected); Bordetella parapertussis PCR Not Detected (NotDetected); Bordetella pertussis PCR Not Detected (NotDetected); Chlamydia pneumoniae PCR Not Detected (NotDetected); Coronavirus 229E PCR Not Detected (NotDetected); Coronavirus CoV-2 (COVID19)PCR Not Detected (NotDetected); Coronavirus HKU1 PCR Not Detected (NotDetected); Coronavirus NL63 PCR Not Detected (NotDetected); Coronavirus OC43PCR Not Detected (NotDetected); Human Metapneumovirus PCR Not Detected (NotDetected); Influenza A PCR Not Detected (NotDetected); Influenza B PCR Not Detected (NotDetected); Mycoplasma pneumoniae PCR Not Detected (NotDetected); Parainfluenza Virus 1 PCR Not Detected (NotDetected); Parainfluenza Virus 2 PCR Not Detected (NotDetected); Parainfluenza Virus 3 PCR Not Detected (NotDetected); Parainfluenza Virus 4 PCR Not Detected (NotDetected); Respiratory Syncytial VirusPCR Not Detected (NotDetected); Rhinovirus/Enterovirus PCR Not Detected (NotDetected)
[2024-06-14] MEDS ORDERED: ACETAMINOPHEN 325 MG TAB PO PRN (19:33)
[2024-06-14] MEDS ORDERED: PANTOprazole 40 MG TAB PO PRN (19:48)
[2024-06-15] MEDS: ONDANSETRON INJ 2 MG/ML 2 ML VIAL IV PRN (00:28)
[2024-06-15 03:57] LABS: Hematocrit (blood only) 40.4 % (37.0-47.0); Hemoglobin 13.7 g/dl (12.0-16.0); Mean Corpuscular Hemoglobin 30.9 pg (25.0-34.0); Mean Corpuscular Hgb Conc 33.9 g/dL (32.0-36.0); Mean Corpuscular Volume 91.2 fL (80.0-100.0); Mean Platelet Volume 9.3 fL (9.4-12.4); Platelet Count 264 K/uL (130-400); RDW Coefficient of Variation 13.2 % (11.5-14.5); RDW Standard Deviation 44.5 fL (36.4-46.3); Red Blood Count 4.43 M/uL (4.20-5.40); White Blood Count 8.03 K/ul (4.8-10.8)
[2024-06-15 04:18] LABS: BUN Creatinine Ratio 21.7 (10-20); Calcium 9.6 mg/dl (8.6-10.3); Creatinine Clr Calc Pharmacy 85.2 ml/min; Potassium 3.7 mmol/L (3.5-5.1)
[2024-06-15 04:25] LABS: Troponin I High Sensitivity 5.1 pg/ml (0-14)
[2024-06-15] MEDS: PROMETHAZINE 25 MG/51 ML BAG IV PRN (07:57)
[2024-06-15] MEDS: lisinopril 10 MG TAB PO SCH (08:19)
--- NOTE | 2024-06-15 08:31 | Hospitalist Progress Note ---
Date of Service June 15, 2024 Assessment & Plan (1) Nausea and vomiting: Plan: Jo Ann is a 68-year-old female with PMH of GERD and HTN. Patient presented on 06/14 for intermittent left-sided chest pain, lightheadedness, and fatigue x 2 days. Nausea and vomiting in the ED the evening of 06/14 Initially thought to be secondary to morphine administration However, given patient is still nauseous this morning, this raises suspicion for viral GI illness v. Nausea secondary to high blood pressure It is possible that viral illness is the cause of her hypertension Protonix 40 mg IV x 1 Famotidine 20 mg IV QAM NSS 500mL IV at 80mL/hr as patient reports she is having difficulty keeping down fluids/pills Continue on clear liquid diet for now IV antiemetics as needed (2) Hypertension: Plan: Hypertension up to in the ED At baseline, she reports her systolic blood pressure is usually around 120- 140 Received labetalol and hydralazine IV Unclear on admission what drove her BP up (DACIA within the differential) Patient's BP remained stable overnight on 06/15 (only 1 episode of SBP rising above 180) Once patient is able to tolerate p.o. intake, would recommend starting on amlodipine 10 mg p.o. today Continue lisinopril Labetalol 5 mg IV on-call as needed for SBP >180 or DBP >110 (3) Chest pain: Plan: Resolved; patient reports no recurrence of forearm 06/15; however, echocardiogram still pending at this time Troponin WNL x 2 on arrival; a.m. troponin on 06/15 remains WNL EKG okay Chest CTA revealed no evidence of pulmonary embolism Suspect patient's high blood pressure is likely contributing to lightheadedness and intermittent chest pain (4) Lightheadedness: Plan: Orthostatic vitals negative for significant changes positionally BioFire negative Will defer PT/OT evaluations, as patient reports she is less lightheaded on 06/15 and suspect it is largely secondary to hypertension Fall precautions (5) GERD (gastroesophageal reflux disease): Plan: Continue PPI Plan Disposition: Continued stay on MedSurg telemetry; ED hold at present Full code Clear liquid diet VTE PPx: SCDs Admission and Anticipated Discharge Date Admission Date: June 14, 2024 Supervising Physician Co-Signing Physician Notes Attending Attestation - Chart reviewed, care plan d/w CHRIS Dickey. I agree w/ the morin components of his progress note documentation with the following addition - --> abnormal EKG -- poor R wave progression, flat T waves anterior-lateral leads Echo - EF 65-70%, no LV wall motion abnormalities, mod LVH Agree w/ amlodipine for additional BP control. Consider stress testing prior to d/c home. Otilio Garcia MD Subjective Patient reports she is somewhat the same this morning, still feeling nauseous despite medications. She reports no recurrence or new episodes of chest pain overnight. Her main concerns this morning are lightheadedness and nausea. She had 1 episode of vomiting last night. Her vomit has been clear/straw-colored. No blood in vomit. She reports that the famotidine last night helped, and that Zofran has been helping as well. Since then, she has been unable to keep anyt massiel down (solids, liquids, or pills). No prior history of bowel obstructions. She denies any abdominal pain this morning. Additionally, she reports that she was able to get up to the bathroom and felt less unsteady on her feet this morning. ROS: Patient endorses nausea, vomiting, headache (which she attributes to lack of caffeine this morning), lightheadedness, and feeling shaky on her feet. Patient denies recurrence of left-sided chest pain, chest palpitations, fever, chills, night-sweats, dizziness, SOB, pleuritic CP, cough, abdominal pain, hematemesis, diarrhea, blood in her urine or stool, or burning with urination. Review of Systems Review of Systems: See HPI above Physical Exam Physical Exam: General: no acute distress; lethargic; niece at bedside; non-toxic appearing; cooperative; SpO2 96% on RA HEENT: normocephalic, atraumatic; no scleral icterus; PERRLA; vision and hearing intact Neck: supple; no lymphadenopathy; trachea midline Skin: warm, dry without signs of tenting; no cyanosis; no rashes, bruising, lesions, or erythema noted CV: Upper left chest wall is TTP; no rashes or bruising appreciated on the chest wall or left flank; chest wall otherwise NTP; RRR; S1/S2 normal; no murmurs/rubs/gallops; pulses intact and symmetric at radial, DP, and PT Lungs: no acute respiratory distress; symmetrical chest wall expansion; clear breath sounds across all lung damico w/o adventitious sounds; no wheezing ABD: Soft, NTP; BS present; no rebound/guarding; no distention MSK: no tics or fasciculations; no edema noted in the LEs b/l, nonerythematous Neuro: A&Ox3; normal mood and affect; fluent speech; no focal deficits; sensation intact and symmetric in lower extremities bilaterally Results & Data Results & Data Vital Signs (Past 12 Hours) Vital Signs Pulse Pulse Resp BP BP Pulse Ox O2 Del Method 06/15/24 07:43 65 06/15/24 07:40 72 18 166/105 H 97 Room Air 06/15/24 03:51 72 14 170/98 H 96 Room Air 06/15/24 03:00 68 15 162/96 H 92 Room Air 06/15/24 02:09 65 15 154/91 H 90 Room Air 06/15/24 01:51 65 17 93 Room Air 06/15/24 01:03 64 16 92 Room Air 06/15/24 01:00 167/96 H 06/15/24 00:36 68 14 165/99 H 97 Room Air 06/15/24 00:06 68 20 06/14/24 22:56 65 Laboratory Results Abnormal lab results 06/14/24 06/15/24 Range/Units 12:55 03:35 MPV 9.2 L 9.3 L (9.4-12.4) fL [place] # (Auto) 0.64 H (0.11-0.59) K/uL D-Dimer 660 H* (0-500) ug/L FEU Sodium 134 L (136-145) mmol/L BUN/Creatinine Ratio 21.7 H (10-20) Glucose 101 H 125 H (70-99(Fasting)) mg/dl Diagnostic Findings Chest X-Ray 06/14/24 12:51 EXAM: Portable AP chest radiograph TECHNIQUE: AP portable radiograph of the chest was obtained. INDICATION: Shortness of breath Comparison: Chest radiograph March 04, 2018 FINDINGS: LINES and TUBES: None CARDIOVASCULAR: Cardiac silhouette is mildly enlarged in size. LUNGS/PLEURA: No focal consolidation identified. Mild peribronchial cuffing. Lungs are hyperinflated. No significant pleural fluid. No discernible pneumothorax. OSSEOUS/OTHER: No displaced acute osseous process identified. IMPRESSION: Mild cardiac enlargement. Mild peribronchial cuffing that may be seen with bronchiolitis. No focal consolidation detected. Electronically signed by Dylan Gayle 06-14-2024 2:17 PM Chest CTA 06/14/24 14:13 CT pulmonary angiogram with IV contrast History: Chest pain COMPARISON: None TECHNIQUE: CT angiography of the chest was performed without IV contrast followed by IV contrast, including 3D post processing CTA image reconstruction. Dose reduction techniques were achieved by using automatic exposure control and/or adjustment of mA and/or kV according to patient size and/or use of iterative reconstruction technique. FINDINGS: Diagnostic quality: Adequate There is no evidence for pulmonary embolism. The heart is not enlarged. There is no pericardial effusion. There are no abnormally enlarged hilar or mediastinal lymph nodes. The central tracheobronchial tree is clear. The lungs are clear. There is no pleural effusion. Limited visualized upper abdomen. No destructive osseous changes are seen. IMPRESSION: No evidence for pulmonary embolism. Electronically signed by Adams Wooten 06-14-2024 2:[address] 06/14/24 14:13 CT head without contrast History: Headache Comparison: None Technique: Using multidetector thin collimation helical acquisition technique, axial, coronal and sagittal CT images from the skull base to the vertex were obtained without intravenous contrast. Dose reduction techniques were achieved by using automatic exposure control and/or adjustment of mA and/or kV according to patient size and/or use of iterative reconstruction technique. Findings: No intracranial hemorrhage, mass-effect, or midline shift. The ventricles are proportionate to the cerebral sulci. The parra to white matter differentiation of the cerebral hemispheres is preserved. The basal cisterns are patent. The visualized paranasal sinuses are clear. Mastoid air cells are clear. Impression: No acute intracranial pathology. Electronically signed by Adams Wooten 06-14-2024 2:58 PM PG Care Time/CCT Total # of Minutes Spent Total Time Spent with Patient: Total time spent is greater than 50% in coordination of care (as documented) at patient's floor/unit and/or counseling patient: Coding [place] [address] SUB INP/OBS CARE 2/35MIN Patient Type Established Medical Decision Making Moderate Complexity Diagnoses Nausea and vomiting R11.2 Hypertension I10 Chest pain R07.9 Lightheadedness R42 GERD (gastroesophageal reflux disease) K21.9
[2024-06-15] MEDS: LABETALOL HCL IV 5 MG/ML 20ML IV PRN (09:05)
[2024-06-15] MEDS: SODIUM CHLORIDE 0.9% 500 ML IV SCH (09:24)
[2024-06-15] MEDS: FAMOTIDINE 20MG IV PUSH 20 MG/5 ML SYR IV SCH (09:25)
[2024-06-15] MEDS: PANTOprazole 40 MG/10 ML SYR IV ONE (09:25)
--- NOTE | 2024-06-15 15:30 | XCELERA ---
[id number] \\[id number]___[id number]
[2024-06-15] MEDS: amLODIPine BESYLATE 5 MG TAB PO ONE (18:09)
[2024-06-16 07:50] LABS: Hematocrit (blood only) 40.2 % (37.0-47.0); Hemoglobin 13.3 g/dl (12.0-16.0); Mean Corpuscular Hemoglobin 30.4 pg (25.0-34.0); Mean Corpuscular Hgb Conc 33.1 g/dL (32.0-36.0); Mean Platelet Volume 9.3 fL (9.4-12.4); Platelet Count 258 K/uL (130-400); RDW Coefficient of Variation 13.7 % (11.5-14.5); RDW Standard Deviation 46.5 fL (36.4-46.3); Red Blood Count 4.37 M/uL (4.20-5.40)
[2024-06-16 08:08] LABS: BUN Creatinine Ratio 23.4 (10-20); Calcium 9.4 mg/dl (8.6-10.3); Creatinine Clr Calc Pharmacy 65.7 ml/min; Potassium 3.4 mmol/L (3.5-5.1)
[2024-06-16] MEDS: POTASSIUM CHLORIDE CRTAB 20 MEQ TABCR PO STA (09:58)
--- NOTE | 2024-06-16 15:43 | Electrocardiogram Report ---
Test Reason : Blood Pressure : */* mmHG Vent. Rate : 52 BPM Atrial Rate : 52 BPM P-R Int : 184 ms QRS Dur : 76 ms QT Int : 452 ms P-R-T Axes : 27 9 148 degrees QTcB Int : 420 ms Sinus bradycardia Low voltage QRS Septal infarct (cited on or before 04-Mar-2018) Abnormal ECG When compared with ECG of 04-Mar-2018 19:16, No significant change Confirmed by Long Escalante ([id number]) on 06/16/2024 3:42:31 PM Referred By: Confirmed By: Long Escalante
[2024-06-16 16:11] VITALS: RESP 16; TEMP 99.3; O2SAT 96
--- NOTE | 2024-06-16 16:18 | XCELERA ---
[id number] \\[id number]
[2024-06-16 16:53] VITALS: BP 133/74; PULSE 66
--- NOTE | 2024-06-16 17:01 | Discharge Summary ---
Discharge Summary Date of Service date of admission - June 14, 2024 date of discharge - June 16, 2024 Principal Dx & Hospital Course #1 = Principal Diagnosis (1) Nausea and vomiting: presented on 06/14/24 with intermittent left-sided chest pain, lightheadedness, and fatigue x 2 days she then developed nausea and vomiting in the ED the evening of 06/14, initially thought secondary to morphine administration however, even on 06/15/24 she continued with nausea she was given IV acid reducers and kept on a clear liquid diet LFTs were wnl respiratory BioFire panel was fully negative by the AM of 06/16/24 her nausea was finally resolved etiology of her prolonged nausea was uncertain she did report frequent GERD symptoms at home but I don't think that would have explained all of her GI symptoms she should have close f/u with her PCP for this did prescribe zofran for prn use at home (2) Hypertension: Patient presented with systolic BPs in the 190s, with peak of 202/105 in the ED BPs gradually improved while here Amlodipine 5mg daily was added to her lisinopril 10mg daily systolic BPs just prior to discharge were 130s to 150s she has a BP cuff at home and will check her BPs daily (3) Chest pain: troponins x 3 were negative telemetry was wnl EKG showed ST flattening anteriorly although older EKGs showed similar findings; however, the ST changes this admission were a bit more pronounced CTA chest was negative for PE or other acute findings echocardiogram showed EF 65-70%, moderate LVH, but no LV wall motion abnormalities in light of strong family history of CAD, presenting chest symptoms, and her EKG findings she underwent exercise stress echocardiogram this returned normal/negative (see full report below) possibly her chest symptoms were due to uncontrolled HTN possibly some of her chest symptoms were GI related (I did increase her omeprazole to 40mg daily from 20mg) possibly musculoskeletal she will need close f/u with her PCP if she has recurrent chest symptoms would advise referral to cardiology for consideration of cardiac catheterization (4) Lightheadedness: Orthostatic vitals negative respiratory BioFire panel was negative 2nd to uncontrolled HTN? her dizziness/lightheadedness resolved with control of her BP, etc she was walking without difficulty on day of discharge (5) GERD (gastroesophageal reflux disease): Continue PPI but increase omeprazole from 20mg/day to 40mg/day Notes For Next Care Provider Medication Changes From Visit amlodipine 5mg daily zofran 4mg prn omeprazole 40mg daily Admission HPI Per Admitting Provider Jo Ann Adame is a 68-year-old female with PMH of GERD and HTN. She presented on 06/14 for intermittent chest pain, lightheadedness, and fatigue x 2 days. The pain is located under her left breast. No radiation to the back, shoulder, or jaw. She does have some soreness in her left shoulder, but believes it was due to housework yesterday (she was scrubbing and cleaning). She reports that the intermittent chest pain is unpredictable, and can happen both with exertion and at rest. She characterizes it as a sharp, stabbing pain just under her left breast. No prior history of GI issues or peptic ulcers. It is not worse with eating. She reports that she is chest pain-free at time of admission; 0/10 at present. When the sharp pain comes on, she rates it as 5/10. It occurs twice daily and last for seconds at a time. Her main concern is generalized weakness and lightheadedness. She denies episodes of syncope. She reports she has been eating and drinking okay. Patient reports good compliance with taking her medicine at home; she took her lisinopril last night. No sick contacts. She did have 1 episode of vomiting in the emergency department, but believes this may have been secondary to morphine administration. No prior history of MIs or strokes. She does report history of A-fib a couple years ago, but does not follow with a load tester, and reports she is not currently on anticoagulation. She does have a family history of cardiac issues. She denies smoking, tobacco use, recent alcohol use. Patient is hypertensive at 156/92 at time admission; vitals otherwise stable. ED course: Labetalol 10 mg IV Morphine sulfate 4 mg IV Zofran 4 mg IV x 2 Hydralazine 10 mg IV ROS: Patient endorses chest pain, lightheadedness, off balance / staggering at times, fatigue, and N/V x 1 in the ED. Patient denies fever, chills, night-sweats, dizziness, syncope, SOB at rest or [place], cough, abdominal pain, diarrhea, melena, burning with urination, blood in the urination/stool, or numbness/tingling in the arms or legs. Discharge Exam gen - NAD, pleasant, looks well today mouth - MMM neck - no JVD heart - RRR, s1 s2, no murmur lungs - CTA b/l abd - soft NT ND BS+ ext - no edema, pulses 2+ b/l feet vascular - radial pulses 2+ b/l chest - no reproducible chest wall pain to palpation Discharge Plan Discharge Items Patient Disposition: Home - Self-Care Reason For Visit: CHEST PAIN,LIGHTHEADEDNESS Discharge Diagnosis: 1. chest pain - no evidence of heart attack, blood clots of the lungs, pneumonia, etc; negative stress test 2. lightheadedness - likely due to uncontrolled blood pressure 3. uncontrolled high blood pressure - improving Activity: As commented below Activity Comment: take it easy for the next 2 days, then gradually increase activities Exercise/Sports: Wait until after follow-up appointment Driving/Machine Use: Resume 1 day after discharge Non-emergency contact: Primary Care Provider Call non-emergency contact if: you have any medication questions and your symptoms worsen Follow-up/Referrals: Sandra Dos Santos CRNP [Primary Care Provider] - (5-7 days ) Diet: Heart Healthy Addtl Attending Provider Instructions: Ms Adame, You were hospitalized due to chest discomfort, lightheadedness, fatigue, and other symptoms. Blood work did not show evidence of heart attack. CT scan of the lungs did not show pulmonary emboli (blood clots), pneumonia, or other problems that would have caused your symptoms. Your blood pressures were VERY high at time of admission and remained high for much of the hospital stay - but they are improving. You had a normal echocardiogram - your heart valves and heart function are normal. You also had a stress test - this returned normal/negative. This means we are about 90-95% confident that your pains were not due to coronary artery disease (the condition which leads to heart attacks). There are times where a stress test can be falsely negative. If you continue to have chest pain, etc please let your family doctor know and they can refer you to cardiology. Lastly, we have started you on a new blood pressure medicine called amlodipine. Recommendations - 1. Take amlodipine 5mg once daily for your blood pressure; continue your lisinopril as previous 2. Increase your omeprazole to 40mg once daily for reflux; I would take the larger dose for at least 1 month; you can always go back to 20mg/day down the line 3. I have prescribed ondansetron 4mg every 6 hours as needed for nausea or vomiting 4. Check your blood pressure at least once daily and keep a log of your numbers; show these to your family doctor 5. I have included a handout on the "DASH diet" which has been shown to reduce blood pressure nicely through certain dietary practices Follow-up - see your family doctor in 5-7 days Return to [facility] if - * you have recurrent episodes of chest pain * your systolic blood pressure (top number) is consistently greater than 190 * you have shortness of breath * any other concerns It was our pleasure to care for you! -Dr Garcia Pending Studies at Discharge: No Stand-Alone Forms: My [facility], Smoking Cessation Medications and DC Order Prescriptions: New amlodipine 5 mg tablet 5 mg PO DAILY Qty: 30 5RF Rx Instructions: for high blood pressure ondansetron 4 mg tablet,disintegrating 4 mg PO Q6H PRN (Reason: nausea and vomiting) Qty: 10 0RF Continued lisinopril 10 mg Tablet 10 mg PO DAILY omega-3 fatty acids Capsule 500 mg PO BID Rx Instructions: OTC cholecalciferol (vitamin D3) [Vitamin D3] 125 mcg (5,000 unit) Tablet See Rx Instructions .ROUTE .COMPLEX Rx Instructions: OTC TABLET PT DOES NOT REMEMBER DOSE BUT SHE TAKES IT QD PreserVision AREDS 2,148 mcg-113 mg-45 mg-17.4mg Tablet 2 tab PO BID Rx Instructions: administer with AM and PM meals OTC B Complex w-Vit C 23-87-09-5-250 mg Tablet 1 tab PO DAILY Rx Instructions: OTC Changed omeprazole 40 mg capsule,delayed release(DR/EC) 40 mg PO DAILY Qty: 30 5RF Rx Instructions: note larger dose Discharge Orders: Discharge Order (Routine); Ordered 06/16/24 Ordered By: Otilio Dunne/Other Patient Handouts: What Is GERD?, DASH Plan Eat Heart Healthy Food, Understanding High Blood Pressure, High Blood Pressure Tx Admission Data Admit Date/Time: 06/14/24 17:05 Attending Provider: Otilio Garcia Admit Provider: James Vang Primary Care Provider: Sandra Dos Santos Other Providers: James Vang Other Interventions: Discharge Summary Assessment (RN) Last Done: 06/16/24 16:52 Hospital Stay Data Procedures Performed 1. echocardiogram - EF 65-70%, moderate LVH. No LV regional wall motion abnormalities. No significant valvular disease. 2. exercise stress echocardiogram - Diagnostic Imagining Performed Chest X-Ray 06/14/24 12:51 EXAM: Portable AP chest radiograph TECHNIQUE: AP portable radiograph of the chest was obtained. INDICATION: Shortness of breath Comparison: Chest radiograph March 04, 2018 FINDINGS: LINES and TUBES: None CARDIOVASCULAR: Cardiac silhouette is mildly enlarged in size. LUNGS/PLEURA: No focal consolidation identified. Mild peribronchial cuffing. Lungs are hyperinflated. No significant pleural fluid. No discernible pneumothorax. OSSEOUS/OTHER: No displaced acute osseous process identified. IMPRESSION: Mild cardiac enlargement. Mild peribronchial cuffing that may be seen with bronchiolitis. No focal consolidation detected. Electronically signed by Dylan Gayle 06-14-2024 2:17 PM Chest CTA 06/14/24 14:13 CT pulmonary angiogram with IV contrast History: Chest pain COMPARISON: None TECHNIQUE: CT angiography of the chest was performed without IV contrast followed by IV contrast, including 3D post processing CTA image reconstruction. Dose reduction techniques were achieved by using automatic exposure control and/or adjustment of mA and/or kV according to patient size and/or use of iterative reconstruction technique. FINDINGS: Diagnostic quality: Adequate There is no evidence for pulmonary embolism. The heart is not enlarged. There is no pericardial effusion. There are no abnormally enlarged hilar or mediastinal lymph nodes. The central tracheobronchial tree is clear. The lungs are clear. There is no pleural effusion. Limited visualized upper abdomen. No destructive osseous changes are seen. IMPRESSION: No evidence for pulmonary embolism. Electronically signed by Adams Wooten 06-14-2024 2:[address] 06/14/24 14:13 CT head without contrast History: Headache Comparison: None Technique: Using multidetector thin collimation helical acquisition technique, axial, coronal and sagittal CT images from the skull base to the vertex were obtained without intravenous contrast. Dose reduction techniques were achieved by using automatic exposure control and/or adjustment of mA and/or kV according to patient size and/or use of iterative reconstruction technique. Findings: No intracranial hemorrhage, mass-effect, or midline shift. The ventricles are proportionate to the cerebral sulci. The parra to white matter differentiation of the cerebral hemispheres is preserved. The basal cisterns are patent. The visualized paranasal sinuses are clear. Mastoid air cells are clear. Impression: No acute intracranial pathology. Electronically signed by Adams Wooten 06-14-2024 2:58 PM Pending Results Patient Have Any Pending Studies at Discharge: No Discharge Instructions Given to Patient (Per Discharging Provider) Ms Adame, [place] were hospitalized due to chest discomfort, lightheadedness, fatigue, and other symptoms. Blood work did not show evidence of heart attack. CT scan of the lungs did not show pulmonary emboli (blood clots), pneumonia, or other problems that would have caused your symptoms. Your blood pressures were VERY high at time of admission and remained high for much of the hospital stay - but they are improving. You had a normal echocardiogram - your heart valves and heart function are normal. You also had a stress test - this returned normal/negative. This means we are about 90-95% confident that your pains were not due to coronary artery disease (the condition which leads to heart attacks). There are times where a stress test can be falsely negative. If you continue to have chest pain, etc please let your family doctor know and they can refer you to cardiology. Lastly, we have started you on a new blood pressure medicine called amlodipine. Recommendations - 1. Take amlodipine 5mg once daily for your blood pressure; continue your lisinopril as previous 2. Increase your omeprazole to 40mg once daily for reflux; I would take the larger dose for at least 1 month; you can always go back to 20mg/day down the line 3. I have prescribed ondansetron 4mg every 6 hours as needed for nausea or vomiting 4. Check your blood pressure at least once daily and keep a log of your numbers; show these to your family doctor 5. I have included a handout on the "DASH diet" which has been shown to reduce blood pressure nicely through certain dietary practices Follow-up - see your family doctor in 5-7 days Return to [facility] if - * you have recurrent episodes of chest pain * your systolic blood pressure (top number) is consistently greater than 190 * you have shortness of breath * any other concerns It was our pleasure to care for you! -Dr Garcia Total Time Total Time Spent Total Time Spent (In Minutes): 50 Coding Level of Care Code 41372 INP/OBS DISCH >30 MIN Diagnoses Nausea and vomiting R11.2 Hypertension I10 Chest pain R07.9 Lightheadedness R42 GERD (gastroesophageal reflux disease) K21.9
--- NOTE | 2024-06-17 06:44 | Electrocardiogram Report ---
Test Reason : Blood Pressure : */* mmHG Vent. Rate : 63 BPM Atrial Rate : 63 BPM P-R Int : 178 ms QRS Dur : 74 ms QT Int : 298 ms P-R-T Axes : 39 23 138 degrees QTcB Int : 304 ms Normal sinus rhythm Abnormal ECG When compared with ECG of 14-Jun-2024 12:53, (unconfirmed) Criteria for Septal infarct are no longer Present T wave inversion now evident in Anterolateral leads Confirmed by Long Escalante ([id number]) on 06/17/2024 6:43:52 AM Referred By: REFERRED SELF Confirmed By: Long Escalante
== END 2024-06-16 18:13 | disposition home or self-care (01) ==
LOC: EDINP 12:45 → ED 12:45 → SUATTDRO 17:05 → 2N 19:33